=== PATIENT | male | born 1935 | race Caucasian/White ===

== ENCOUNTER → 2020-09-19 | Day surgery (SDC) | payer MEDICARE, OTHER ==
[~2020-09-19] MED LIST: LASIX20 MG PO
[2020-09-19 08:11] LABS: HCT 40.3 % (42.0-52.0); HGB 13.2 g/dl (13.2-18.0); MCHC 32.8 g/dL (32.0-36.0); MCV 88.6 fL (78.0-100.0); MPV 8.9 fL (6.0-9.5); RBC 4.55 M/uL (4.70-6.00); RDW 13.7 % (11.5-14.0); WBC 7.3 K/uL (4.0-10.5)
[2020-09-19 08:27] LABS: ALBUMIN 3.6 g/dL (3.4-5.0); BILIRUBIN - TOTAL 0.8 mg/dL (0.2-1.0); CREATININE 1.04 mg/dL (0.67-1.17); GLOBULIN (CALCULATION) 3.1 g/dL; POTASSIUM 4.5 mmol/L (3.5-5.1); TOTAL PROTEIN 6.7 g/dL (6.4-8.2)
== END | disposition home or self-care (01) ==
LOC: FAS 07:26
PROVIDERS: Surgery
DX: K29.70 Gastritis, unspecified, without bleeding (principal); K44.9 Diaphragmatic hernia without obstruction or gangrene; Z85.46 Personal history of malignant neoplasm of prostate; Z82.49 Family history of ischemic heart disease and other diseases of the circulatory system; Z79.899 Other long term (current) drug therapy
CPT/HCPCS: 36415; 80053; 88305; J2704; J7120